=== PATIENT | male | born 1960 | race African-American/Black ===

== ENCOUNTER 2018-11-18 09:47 | Emergency (ER) | payer SELFPAY ==
[~2018-11-18] VITALS: Ht 170.2 cm; Wt 95.0 kg
[2018-11-18] MEDS ORDERED: IBUPROFEN 600MG TABLET PO ONE (11:15)
[2018-11-18] MEDS ORDERED: HYDROCODONE/ACETAMINOPHEN 5/325MG TABLET PO ONE (11:15)
[2018-11-18] MEDS ORDERED: BACITRACIN ZINC OINT UDPKT TOP ONE (13:00)
[2018-11-18 13:11] VITALS: BP 145/92
== END 2018-11-18 13:12 | disposition home or self-care (01) ==
LOC: ER 09:47
DX: S20.211A Contusion of right front wall of thorax, initial encounter (principal); S43.402A Unspecified sprain of left shoulder joint, initial encounter; S40.811A Abrasion of right upper arm, initial encounter; V49.88XA Car occupant (driver) (passenger) injured in other specified transport accidents, initial encounter; Y93.89 Activity, other specified; Y92.89 Other specified places as the place of occurrence of the external cause; Y99.8 Other external cause status
CPT/HCPCS: 71045; 99284